=== PATIENT | female | born 1995 | race Caucasian/White ===

== ENCOUNTER 2017-10-11 11:33 | Emergency (ER) | payer OTHER ==
[~2017-10-11] VITALS: Ht 152.4 cm; Wt 49.0 kg
[~2017-10-11 11:33] MED LIST: AMOX250CH PO; ANTIBIOTIC; ANTOXYBENA LEFTEAR; Amoxicillin500 MG PO; BIRTH CONTROL MED; CODGUAEL PO; Crutch1 EACH MISC; DOXY100 PO; Diflucan100 MG PO; FLUC150A PO; GUAI600T33 PO; IBUP600 PO; MUSCLE RELAXER; Norco 5-325 Ta1 EACH PO; Vibramycin100 MG PO
[2017-10-11 12:06] LABS: BASOPHILS ABSOLUTE AUTO 0.03 K/mm3 (0.00-0.23); BASOPHILS PERCENT AUTO 0 % (0-2); EOSINOPHILS ABSOLUTE AUTO 0.26 K/mm3 (0.00-0.68); EOSINOPHILS PERCENT AUTO 3 % (0-6); Hematocrit 40.1 % (33.0-51.0); Hemoglobin 13.5 g/dL (11.5-16.0); IMMATURE GRAN ABSOLUTE AUTO 0.01 K/mm3 (0.00-0.10); IMMATURE GRAN PERCENT AUTO 0 % (0-1); LYMPHOCYTES ABSOLUTE AUTO 2.69 K/mm3 (0.84-5.20); LYMPHOCYTES PERCENT AUTO 28 % (21-46); MONOCYTES ABSOLUTE AUTO 0.96 K/mm3 (0.16-1.47); MONOCYTES PERCENT AUTO 10 % (4-13); Mean Corpuscular HGB 29.9 pg (26.0-34.0); Mean Corpuscular HGB Conc 33.7 g/dL (31.5-36.5); Mean Corpuscular Volume 89 fL (80-100); Mean Platelet Volume 9.3 fL (9.1-12.4); NEUTROPHILS ABSOLUTE AUTO 5.67 K/mm3 (1.96-9.15); NEUTROPHILS PERCENT AUTO 59 % (41-73); Platelet Count 271 K/mm3 (150-400); RDW Coefficient Variation 12.9 % (11.7-14.2); RDW Standard Deviation 42.5 fL (35.1-46.3); Red Blood Cell Count 4.51 M/mm3 (3.80-5.20); White Blood Cell Count 9.62 K/mm3 (4.00-11.30)
[2017-10-11 12:24] LABS: Anion Gap 8 mmol/L (6-16); Blood Urea Nitrogen 15 mg/dL (8-24); Bun/Creatinine Ratio 16.3 (12.0-20.0); CO2, Blood 26 mmol/L (21-32); Calcium, Blood 8.6 mg/dL (8.5-10.1); Chloride, Blood 109 mmol/L (98-108); Creatinine, Blood 0.92 mg/dL (0.40-1.00); Glomerular Filtration Rate >60 (60-); Glucose, Blood 103 mg/dL (70-99); Potassium, Blood 4.2 mmol/L (3.5-5.5); Sodium, Blood 143 mmol/L (136-145)
== END 2017-10-11 13:23 | disposition home or self-care (01) ==
LOC: ER 11:33
PROVIDERS: Emergency Medicine
DX: L50.0 Allergic urticaria (principal); T50.995A Adverse effect of other drugs, medicaments and biological substances, initial encounter; F11.10 Opioid abuse, uncomplicated; F15.10 Other stimulant abuse, uncomplicated; Z91.018 Allergy to other foods; Z91.048 Other nonmedicinal substance allergy status
CPT/HCPCS: 36415; 80048; 83605; 84703; 85025; 87040; 96361; 96374; 96375; 99283; J1200; J3490; J7030

== ENCOUNTER 2018-02-15 02:13 | Emergency (ER) | payer OTHER ==
[~2018-02-15] VITALS: Ht 162.6 cm; Wt 56.7 kg
== END 2018-02-15 04:00 | disposition home or self-care (01) ==
LOC: ER 02:13
DX: S09.90XA Unspecified injury of head, initial encounter (principal); S16.1XXA Strain of muscle, fascia and tendon at neck level, initial encounter; M54.5 Low back pain; Z91.018 Allergy to other foods; Z91.048 Other nonmedicinal substance allergy status; W06.XXXA Fall from bed, initial encounter
CPT/HCPCS: 70450; 72125; 72131; 99284

== ENCOUNTER 2018-04-17 05:01 | Emergency (ER) | payer OTHER ==
[~2018-04-17] VITALS: Ht 152.4 cm; Wt 45.4 kg
== END 2018-04-17 05:13 | disposition left against medical advice (07) ==
LOC: ER 05:01
DX: Z53.21 Procedure and treatment not carried out due to patient leaving prior to being seen by health care provider (principal)

== ENCOUNTER 2018-05-05 10:16 | Emergency (ER) | payer OTHER ==
[~2018-05-05] VITALS: Ht 154.9 cm; Wt 54.4 kg
== END 2018-05-05 10:30 | disposition home or self-care (01) ==
LOC: ER 10:16
DX: T40.1X1A Poisoning by heroin, accidental (unintentional), initial encounter (principal); Z91.018 Allergy to other foods; Z91.048 Other nonmedicinal substance allergy status
CPT/HCPCS: 99284; J2310

== ENCOUNTER 2018-07-15 00:10 | Emergency (ER) | payer OTHER ==
[~2018-07-15] VITALS: Ht 152.4 cm; Wt 63.5 kg
[2018-07-15] MEDS ORDERED: CEPH500 PO (00:31)
[2018-07-15] MEDS ORDERED: Diflucan100 MG PO (00:31)
[2018-07-15] MEDS ORDERED: Bactrim Ds Tab1 EACH PO (00:31)
[2018-07-15] MEDS ORDERED: KETO10 PO (00:31)
== END 2018-07-15 00:38 | disposition home or self-care (01) ==
LOC: ER 00:10
DX: L02.31 Cutaneous abscess of buttock (principal); L03.317 Cellulitis of buttock
CPT/HCPCS: 99282

== ENCOUNTER 2019-08-13 07:13 | Emergency (ER) | payer OTHER ==
[~2019-08-13] VITALS: Ht 165.1 cm; Wt 54.4 kg
[~2019-08-13 07:13] MED LIST changes: +Bactrim Ds Tab1 EACH PO; +CEPH500 PO; +KETO10 PO
== END 2019-08-13 08:07 | disposition home or self-care (01) ==
LOC: ER 07:13
DX: T40.1X1A Poisoning by heroin, accidental (unintentional), initial encounter (principal); R11.2 Nausea with vomiting, unspecified; Z91.018 Allergy to other foods; Z91.048 Other nonmedicinal substance allergy status
CPT/HCPCS: 96374; 99283-25; J2405

== ENCOUNTER → 2019-11-28 | Outpatient (CLI) | payer OTHER | END | disposition home or self-care (01) | LOC: LAB EV 17:17 → LAB SHORT 17:17 | DX: L08.9 Local infection of the skin and subcutaneous tissue, unspecified (principal) | CPT/HCPCS: 87070; 87075; 87205 ==

== ENCOUNTER 2021-03-11 12:44 | Emergency (ER) | payer OTHER ==
[~2021-03-11] VITALS: Ht 162.6 cm; Wt 52.2 kg
[2021-03-11] MEDS ORDERED: TRIDERM28.4 GM TOP (14:05)
== END 2021-03-11 14:22 | disposition home or self-care (01) ==
LOC: ER 12:44
DX: L25.9 Unspecified contact dermatitis, unspecified cause (principal); Z91.018 Allergy to other foods; Z91.09 Other allergy status, other than to drugs and biological substances
CPT/HCPCS: 96372; 99282; J3301

== ENCOUNTER 2022-12-16 01:56 | Emergency (ER) | payer OTHER ==
[~2022-12-16] VITALS: Ht 162.6 cm; Wt 68.0 kg
[~2022-12-16 01:56] MED LIST changes: +TRIDERM28.4 GM TOP
[2022-12-16 03:04] LABS: BASOPHILS ABSOLUTE AUTO 0.04 K/mm3 (0.00-0.23); BASOPHILS PERCENT AUTO 1 % (0-2); EOSINOPHILS ABSOLUTE AUTO 0.25 K/mm3 (0.00-0.68); EOSINOPHILS PERCENT AUTO 3 % (0-6); Hematocrit 38.8 % (33.0-51.0); Hemoglobin 13.1 g/dL (11.5-16.0); IMMATURE GRAN ABSOLUTE AUTO 0.01 K/mm3 (0.00-0.10); IMMATURE GRAN PERCENT AUTO 0 % (0-1); LYMPHOCYTES ABSOLUTE AUTO 2.77 K/mm3 (0.84-5.20); LYMPHOCYTES PERCENT AUTO 38 % (21-46); MONOCYTES ABSOLUTE AUTO 0.53 K/mm3 (0.16-1.47); MONOCYTES PERCENT AUTO 7 % (4-13); Mean Corpuscular HGB 29.5 pg (26.0-34.0); Mean Corpuscular HGB Conc 33.8 g/dL (31.5-36.5); Mean Corpuscular Volume 87 fL (80-100); Mean Platelet Volume 9.2 fL (9.1-12.4); NEUTROPHILS ABSOLUTE AUTO 3.69 K/mm3 (1.96-9.15); NEUTROPHILS PERCENT AUTO 51 % (41-73); Platelet Count 283 K/mm3 (150-400); RDW Coefficient Variation 12.4 % (11.7-14.2); RDW Standard Deviation 39.8 fL (35.1-46.3); Red Blood Cell Count 4.44 M/mm3 (3.80-5.20); White Blood Cell Count 7.29 K/mm3 (4.00-11.30)
[2022-12-16 03:24] LABS: Albumin, Blood 3.8 g/dL (3.4-5.0); Albumin/Globulin Ratio 0.9 (0.8-1.8); Bilirubin, Total 0.5 mg/dL (0.1-1.0); Bun/Creatinine Ratio 15.7 (12.0-20.0); Calcium, Blood 8.9 mg/dL (8.5-10.1); Creatinine, Blood 0.89 mg/dL (0.40-1.00); Globulin, Blood 4.1 g/dL (2.2-4.0); Potassium, Blood 3.3 mmol/L (3.5-5.5); Total Protein, Blood 7.9 g/dL (6.4-8.2)
[2022-12-16] MEDS ORDERED: ACET500 PO (05:36)
[2022-12-16] MEDS ORDERED: LIDO700A20 TOP (05:36)
[2022-12-16] MEDS ORDERED: IBUP400 PO ×2 (05:36→18:31)
[2022-12-16] MEDS ORDERED: Robaxin750 MG PO (05:36)
== END 2022-12-16 05:58 | disposition home or self-care (01) ==
LOC: ER 01:56
PROVIDERS: Student in an Organized Health Care Education/Training Program
DX: S01.01XA Laceration without foreign body of scalp, initial encounter (principal); W17.89XA Other fall from one level to another, initial encounter; S16.1XXA Strain of muscle, fascia and tendon at neck level, initial encounter; E87.6 Hypokalemia; Z91.018 Allergy to other foods; Z91.048 Other nonmedicinal substance allergy status
CPT/HCPCS: 36415; 70450; 71260; 72125; 74177; 80053; 84703; 85025; A9270; J1885; J3010; Q9967

== ENCOUNTER 2022-12-16 17:02 | Emergency (ER) | payer OTHER ==
[~2022-12-16] VITALS: Ht 152.4 cm; Wt 63.5 kg
[~2022-12-16 17:02] MED LIST changes: +ACET500 PO; +IBUP400 PO; +LIDO700A20 TOP; +Robaxin750 MG PO
[2022-12-16] MEDS ORDERED: IBUP400 PO (18:31)
== END 2022-12-16 18:45 | disposition home or self-care (01) ==
LOC: ER 17:02
DX: S12.490A Other displaced fracture of fifth cervical vertebra, initial encounter for closed fracture (principal); W17.89XA Other fall from one level to another, initial encounter; Z91.018 Allergy to other foods; Z91.048 Other nonmedicinal substance allergy status; Z79.899 Other long term (current) drug therapy
CPT/HCPCS: 99281; L0160

== ENCOUNTER → 2025-01-26 | Outpatient (CLI) | payer OTHER | LOC: LAB SHORT 19:41 → LAB 19:41 | DX: R39.89 Other symptoms and signs involving the genitourinary system (principal) | CPT/HCPCS: 87077; 87086; 87147; 87186 ==